=== PATIENT | female | born 1990 | race Two or more races ===

== ENCOUNTER 2023-12-19 05:38 | Emergency (ER) | payer OTHER ==
[~2023-12-19] VITALS: Ht 157.5 cm; Wt 63.5 kg
[~2023-12-19 05:38] MED LIST: CELEBREX100 MG PO
[2023-12-19] MEDS ORDERED: ACETAMINOPHEN 500 MG GEL..CAP PO STA (07:06)
[2023-12-19] MEDS ORDERED: ACETAMINOPHEN 500 MG GEL..CAP PO ONE (07:11)
[2023-12-19 07:36] LABS: HEMOGLOBIN 14.1 g/dL (12.0-15.00); MEAN CORPUSCULAR HEMOGLOBIN 25.6 pg (27.00-32.0); MEAN CORPUSCULAR HGB CONC 32.8 g/dl (32.0-36.0); PLATELET COUNT 131 K/uL (150-450); RED BLOOD COUNT 5.51 M/uL (4.00-6.00); RED CELL DISTRIBUTION WIDTH 16.5 % (11.5-14.5)
[2023-12-19 08:43] VITALS: BP 119/88; O2SAT 100
== END 2023-12-19 08:45 | disposition home or self-care (01) ==
LOC: ER 05:39
PROVIDERS: General Practice
DX: R50.9 Fever, unspecified (principal); Z87.09 Personal history of other diseases of the respiratory system; A90 Dengue fever [classical dengue]